=== PATIENT | male | born 1945 | race Caucasian/White ===

== ENCOUNTER 2018-02-18 10:22 | Outpatient (CLI) | payer MEDICARE, BC, SELFPAY ==
[2018-02-18 11:49] LABS: Cholesterol 218 mg/dL (50-200); HDL Cholesterol 84 mg/dL (40-60); LDL CHOLESTEROL 123 mg/dL (<100); Triglyceride 44 mg/dL (30-150)
[2018-02-19 09:40] LABS: PSA, Screening 2.3 ng/ml (0-6.5)
== END 2018-02-18 10:42 ==
LOC: LBO 10:24 → LOS 11:22
PROVIDERS: PCP Family Medicine; Visit Provider Family Medicine
DX: E78.5 Hyperlipidemia, unspecified (principal); Z12.5 Encounter for screening for malignant neoplasm of prostate
CPT/HCPCS: 36415; 80061; 83721; 84153

== ENCOUNTER 2019-02-24 00:47 | Outpatient (CLI) | payer MEDICARE, BC, SELFPAY ==
[2019-02-24 11:16] LABS: CREATININE 0.89 mg/dL (0.70-1.30); Calculated LDL 69 mg/dL; Cholesterol 165 mg/dL (50-200); HDL Cholesterol 88 mg/dL (40-60); Potassium 4.7 mmol/L (3.5-5.1); Triglyceride 44 mg/dL (30-150)
[2019-02-25 09:34] LABS: PSA, Screening 2.5 ng/ml (0-6.5)
== END 2019-02-24 01:07 ==
PROVIDERS: PCP Family Medicine; Visit Provider Family Medicine
DX: E78.5 Hyperlipidemia, unspecified (principal); Z12.5 Encounter for screening for malignant neoplasm of prostate; I10 Essential (primary) hypertension
CPT/HCPCS: 36415; 80061; 84153; 82565; 84132

== ENCOUNTER → 2019-12-22 13:45 | Outpatient (BNVA) | payer MEDICARE, BC, SELFPAY | PROVIDERS: PCP Family Medicine; Referring Provider Family Medicine; Visit Provider Internal Medicine Cardiovascular Disease | DX: I65.29 Occlusion and stenosis of unspecified carotid artery (principal); Z95.4 Presence of other heart-valve replacement; I10 Essential (primary) hypertension | CPT/HCPCS: 99203; 99214 ==

== ENCOUNTER 2020-02-17 05:17 | Outpatient (CLI) | payer MEDICARE, BC, SELFPAY ==
[2020-02-17 12:53] LABS: Calculated LDL 78 mg/dL (<100); Cholesterol 170 mg/dL (<200); HDL Cholesterol 83 mg/dL (40-60); Potassium 5.3 mmol/L (3.5-5.1); Triglyceride 45 mg/dL (<150)
[2020-02-17 18:26] LABS: PSA, Screening 2.4 ng/mL (0.0-6.5)
== END 2020-02-17 05:37 ==
PROVIDERS: PCP Family Medicine; Visit Provider Family Medicine
DX: E78.5 Hyperlipidemia, unspecified (principal); I10 Essential (primary) hypertension; Z12.5 Encounter for screening for malignant neoplasm of prostate
CPT/HCPCS: 36415; 80061; 84153; 82565; 84132

== ENCOUNTER 2020-02-19 11:17 | Outpatient (CLI) | payer MEDICARE, BC, SELFPAY ==
--- NOTE | 2020-02-19 14:44 | DI.US_ITS ---
APPROVED REPORT EXAM: Comprehensive 2D, Doppler, and color-flow Echocardiogram Patient Location: Out-Patient Associate: Aileen Cisneros RDCS (AE) Indications: Mitral Valve Repair Other Information Study Quality: Adequate Conclusion Left Ventricle : The left ventricle is normal size. The left ventricular systolic function is normal. The left ventricular ejection fraction is within the normal range. There is normal left ventricular wall thickness. There is normal LV segmental wall motion. The left ventricular diastolic function is normal. LVEF is 58%. Right Ventricle : The right ventricle is normal size. The right ventricular systolic function is norm al. The RVSP is 19.1mmHg. Atria : The left atrium size is normal. The right atrium size is normal. Mitral Valve : Mitral annuloplasty changes are present. No evidence of mitral valve stenosis. Trace m itral regurgitation. Tricuspid Valve : The tricuspid valve is normal in structure. There is no tricuspid valve stenosis. M ild to moderate tricuspid regurgitation. Please see remainder of study for further details. There is no prior study available for comparison. Wall motion Left Ventricle The left ventricle is normal size. The left ventricular systolic function is normal. The left ventric ular ejection fraction is within the normal range. There is normal left ventricular wall thickness. T here is normal LV segmental wall motion. The left ventricular diastolic function is normal. There is no ventricular septal defect visualized. LVEF is 58%. Right Ventricle The right ventricle is normal size. The right ventricular systolic function is normal. The RVSP is 19 .1mmHg. Atria The left atrium size is normal. The right atrium size is normal. The interatrial septum is intact wit h no evidence for an atrial septal defect. Aortic Valve The aortic valve is normal in structure. Aortic valve is trileaflet. There is no aortic valvular sten osis. Trace aortic regurgitation. Mitral Valve Mitral annuloplasty changes are present. No evidence of mitral valve stenosis. Trace mitral regurgita tion. Tricuspid Valve The tricuspid valve is normal in structure. There is no tricuspid valve stenosis. Mild to moderate tr icuspid regurgitation. Pulmonic Valve The pulmonary valve is normal in structure. There is no pulmonic valvular stenosis. There is no pulmo shahbaz valvular regurgitation. Great Vessels The aortic root is normal in size. Ascending aorta is not well visualized. Aortic arch is normal in c aliber. IVC is normal in size and collapses >50% with inspiration. Pericardium There is no pericardial effusion. 2D Dimensions IVSD d PLAX 0.98 cm M: 0.6-1.2 LV Vol A2C d MOD 83.0 mL LVPW d PLAX 0.90 cm M: 0.6 - 1.2 LV Vol A4C d MOD 101.9 mL LVID d PLAX 4.90 cm M: 4.2 - 5.8 LA vol/ BSA A2C s A-L 26.5 mL/m2 LVDs 3.25 cm M: 2.5 - 4.0 LA vol/ BSA A4C s A-L 30.0 mL/m2 Ao Root d 3.28 cm M: 3.1 - 3.7 LA Vol/ BSA Biplane s A-L 29.6 mL/m2 RA Area A4C 15.62 cm2 LA Area A4C s MOD 18.63 cm2 RA Vol/ BSA A4C s A-L 23.5 mL/m2 LA Area A2C s MOD 16.69 cm2 LV EF Teichholz 61.1 % LV EF A4C MOD 58.9 % LVEF (Schaeffer's) 57.86 % M: 52 - 72 LV EF A2C MOD 58.3 % LV Volume 73.83 mL M: 62 - 150 LV EF Biplane MOD 57.9 % LV Volume Index 40.56 mL/m2 M: 34 - 74 SV 55.23 mL LV Vol Biplane MOD 95.5 mL SV Index 30.21 mL/m2 FS 32.80 % M-Mode TAPSE 1.43 cm (M/F) >1.7 LV Diastology MV E' medial 0.087 (>0.07 m/s) E/A Ratio 1.0 LV E/e MED 9.65 (<14) MV E Vmax 0.84 (0.4-1.3 m/s) MV E' lateral 0.133 (>0.1 m/s) MV A Vmax 0.80 (0.4-1.3 m/s) LV E/e LAT 6.30 (<14) MV E/A Ratio 1.03 MV E/E' medial 9.68 MV E/E' lateral 6.31 Aortic Valve LVOT Area 3.97 cm2 AoV Area Vmax 3.01 cm2 LVOT Vmax 0.82 m/s AoV Area/ BSA (Vmax) 1.64 cm2/m2 LVOT Mean Kennedy. 0.58 m/s JASPAL Mean Kennedy. 2.79 cm2 LVOT Peak Grad 2.7 mmHg JASPAL Mean Kennedy. Index 1.53 cm2/m2 LVOT Mean Grad 1.5 mmHg LVOT VTI 0.162 m LVOT Diam s 2.20 cm AoV Vmax 1.09 m/s Velocity Ratio 0.75 AoV Mean Kennedy. 0.83 m/s AoV Peak Grad 4.7 mmHg LVOT SV 64.24 mL AoV Mean Grad 3.0 mmHg AoV VTI 0.227 m AoV Area VTI 2.84 cm2 AoV Area/ BSA (VTI) 1.55 cm/m2 Mitral Valve MV DT 366 (160-240 msec) MV PHT 106 msec MV Area PHT 2.07 cm2 Pulmonary Valve PV Vmax 1.14 (0.5-1.5 m/s) RVOT Peak Gr. 1.76 mmHg PV Peak Grad 5.2 mmHg RVOT Mean Gr. 1.15 mmHg PV Mean Grad 2.6 mmHg RVOT VTI 0.135 m PV VTI 0.165 m RVOT Vmax 0.66 m/s Tricuspid Valve TR Peak Grad 16.0 mmHg TR Vmax 2.00 m/s RA Pressure 3.00 mmHg RVSP (TR) 19.1 mmHg
== END 2020-02-19 11:37 ==
PROVIDERS: PCP Family Medicine; Visit Provider Internal Medicine Cardiovascular Disease
DX: Z98.890 Other specified postprocedural states (principal); Z95.4 Presence of other heart-valve replacement; I07.1 Rheumatic tricuspid insufficiency
CPT/HCPCS: 93306

== ENCOUNTER 2020-03-02 04:26 | Outpatient (CLI) | payer MEDICARE, BC, SELFPAY ==
[2020-03-02 12:43] LABS: Potassium 4.8 mmol/L (3.5-5.1)
== END 2020-03-02 04:46 ==
PROVIDERS: PCP Family Medicine; Visit Provider Family Medicine
DX: I10 Essential (primary) hypertension (principal)
CPT/HCPCS: 36415; 84132

== ENCOUNTER → 2021-01-02 13:20 | Outpatient (BNVA) | payer MEDICARE, BC, SELFPAY | PROVIDERS: PCP Family Medicine; Referring Provider Family Medicine; Visit Provider Internal Medicine Cardiovascular Disease | DX: I10 Essential (primary) hypertension (principal); Z98.890 Other specified postprocedural states | CPT/HCPCS: 99213 ==

== ENCOUNTER 2021-04-05 01:36 | Outpatient (CLI) | payer MEDICARE, BC, SELFPAY ==
[2021-04-05 11:26] LABS: CREATININE 0.8 mg/dL (0.70-1.30); Calculated LDL 89 mg/dL (<100); Cholesterol 179 mg/dL (<200); HDL Cholesterol 82 mg/dL (40-60); Potassium 4.8 mmol/L (3.5-5.1); Triglyceride 43 mg/dL (<150)
== END 2021-04-05 01:37 | disposition home or self-care (01) ==
LOC: LOS 01:37
PROVIDERS: PCP Family Medicine; Visit Provider Family Medicine
DX: I10 Essential (primary) hypertension (principal); E78.5 Hyperlipidemia, unspecified
CPT/HCPCS: 36415; 80061; 82565; 84132

== ENCOUNTER 2021-04-18 13:52 | Outpatient (CLI) | payer MEDICARE, BC, SELFPAY ==
[2021-04-18 13:52] LABS: Abs Immature Grans 0.01 10^3/uL (0.0-0.06); Absolute Basophil Count 0.06 10^3/uL (0.0-0.2); Absolute Eosinophil Count 0.14 10^3/uL (0.0-0.7); Absolute Lymphocyte Count 1.11 10^3/uL (1.2-3.4); Absolute Monocyte Count 0.46 10^3/uL (0.1-0.8); Absolute Neutrophil Count 3.63 10^3/uL (1.2-6.7); Basophils % 1.1; Eosinophils % 2.6; HCT 40.9 % (40.0-50.0); HGB 13.5 g/dL (13.5-17.5); Immature Grans % 0.2; Lymphocytes % 20.5; MCH 31.9 pg (27.0-33.0); MCV 96.7 fL (80-95); MPV 9.3 fL (8.0-11.0); Monocytes % 8.5; Neutrophils % 67.1; Nucleated RBC 0 %; Platelet Count 216 10^3/uL (130-400); RBC 4.23 10^6/uL (4.36-5.78); RDW 13.1 % (11.8-14.1); RDW-SD 46.5 fL; WBC 5.41 10^3/uL (4.4-10.8)
[2021-04-18 13:54] LABS: ESR 2 mm/hr (0-20)
[2021-04-18 15:26] LABS: ALT 33 U/L (16-63); AST 39 U/L (15-37); Albumin 3.8 g/dL (3.4-5.0); Alkaline Phosphatase 70 U/L (46-116); Anion Gap 5.1 mmol/L (3-11); BUN 16 mg/dL (7-18); Bilirubin, Total 0.3 mg/dL (0.2-1.0); CO2 31.9 mmol/L (21.0-32.0); CREATININE 0.9 mg/dL (0.70-1.30); Calcium 9.3 mg/dL (8.5-10.1); Chloride 102 mmol/L (98-107); Glucose 79 mg/dL (74-106); Sodium 139 mmol/L (136-145)
[2021-04-18 15:27] LABS: C-Reactive Protein < 0.05 mg/dL (0.0-0.3)
[2021-04-19 10:42] LABS: Lyme Ab w Rflx to Lyme Confirm Negative (Negative)
== END 2021-04-18 13:53 | disposition home or self-care (01) ==
LOC: LBO 13:54
PROVIDERS: PCP Family Medicine; Visit Provider Family Medicine
DX: I10 Essential (primary) hypertension (principal); R51.9 Headache, unspecified
CPT/HCPCS: 36415; 80053; 85652; 85025; 86140; 86618

== ENCOUNTER 2021-04-21 02:33 | Outpatient (CLI) | payer MEDICARE, BC, SELFPAY ==
--- NOTE | 2021-04-21 08:30 | DI.MRI_ITS ---
Exam(s) MR BRAIN WO/W EXAM: MR BRAIN WO/W CLINICAL HISTORY: NEW ONSET MODERATE TO SEVERE LT PERIORBITAL PAIN,R51.9. TECHNIQUE: Multiplanar multisequence MRI of the brain was performed. CONTRAST MATERIAL: IV Contrast: 14 ML of Dotarem contrast administered. COMPARISON: No exams were available for comparison FINDINGS: VENTRICLES AND EXTRA AXIAL SPACES: Normal in size and morphology for the patient's age. HEMORRHAGE: None. CEREBRAL PARENCHYMA: No focus of restricted diffusion to suggest acute infarct. No space-occupying le ronnie identified. Mild atrophy and white matter changes of small vessel disease. MIDLINE SHIFT: None. BRAINSTEM/CEREBELLUM: Normal. CALVARIUM: Normal. ENHANCEMENT: No suspicious enhancement identified. VISUALIZED PARANASAL SINUSES/MASTOIDS: Mild mucous retention floor right maxillary sinus. Frontal si nuses clear. OTHER FINDINGS: Orbits and pituitary are unremarkable. IMPRESSION: Unremarkable MRI of the brain. DATA REPOSITORY:
[2021-04-21] MEDS: Normal Saline Flush 10 ML SYR IVP (13:27)
[2021-04-21] MEDS: Gadoterate meglumine 20 ML VIAL 14 ML IVP (13:28)
== END 2021-04-21 02:53 ==
PROVIDERS: PCP Family Medicine; Visit Provider Family Medicine
DX: R51.9 Headache, unspecified (principal); R90.82 White matter disease, unspecified
CPT/HCPCS: 70553

== ENCOUNTER 2021-04-28 14:22 | Outpatient (CLI) | payer MEDICARE, BC, SELFPAY ==
--- NOTE | 2021-04-28 10:55 | DI.RAD_ITS ---
Exam(s) XR KNEE LT 3V AP,LAT,[place] EXAM: XR KNEE LT 3V AP,LAT,[place] CLINICAL HISTORY: left knee pain; s/p L TKA about 15 yrs ago M25.562 PAIN LT KNEE TECHNIQUE: COMPARISON: No exams were available for comparison FINDINGS: Three views were obtained. There is an ACL reconstruction. There is narrowing of the cartilaginous joint spaces of medial and lateral tibiofemoral joints. Mild marginal osteophytes formation noted at multiple sites. No other significant bony or soft tissue abnormality seen. IMPRESSION: RADIATION DOSE DELIVERED: Total DLP
== END 2021-04-28 14:42 ==
PROVIDERS: PCP Family Medicine; Visit Provider Family Medicine
DX: M25.562 Pain in left knee (principal); Z98.890 Other specified postprocedural states
CPT/HCPCS: 73562

== ENCOUNTER → 2021-05-02 13:41 | Outpatient (BNVA) | payer MEDICARE, BC, SELFPAY | PROVIDERS: PCP Family Medicine; Referring Provider Family Medicine; Visit Provider Psychiatry & Neurology Neurology | DX: H57.12 Ocular pain, left eye (principal); I10 Essential (primary) hypertension | CPT/HCPCS: 99215 ==

== ENCOUNTER → 2021-12-19 12:47 | Outpatient (BNVA) | payer MEDICARE, SELFPAY | PROVIDERS: PCP Family Medicine; Referring Provider Family Medicine; Visit Provider Internal Medicine Cardiovascular Disease | DX: R42 Dizziness and giddiness (principal); I10 Essential (primary) hypertension; Z98.890 Other specified postprocedural states | CPT/HCPCS: 99214; 99213 ==

== ENCOUNTER 2022-02-27 09:16 | Outpatient (CLI) | payer MEDICARE, SELFPAY ==
[2022-02-27 12:50] LABS: AST 41 U/L (15-37); CREATININE 0.9 mg/dL (0.70-1.30); Estimated GFR 88.51 (mL/min/1.73m2); Potassium 4.9 mmol/L (3.5-5.1)
== END 2022-02-27 09:17 | disposition home or self-care (01) ==
LOC: LOS 09:17
PROVIDERS: PCP Family Medicine; Referring Provider Family Medicine; Visit Provider Family Medicine
DX: I10 Essential (primary) hypertension (principal); K76.0 Fatty (change of) liver, not elsewhere classified
CPT/HCPCS: 36415; 82565; 84132; 84450

== ENCOUNTER 2022-11-14 02:31 | Outpatient (CLI) | payer MEDICARE, SELFPAY ==
--- NOTE | 2022-11-14 08:30 | DI.RAD_ITS ---
Exam(s) XR FOOT RT COMPLETE EXAM: XR FOOT RT COMPLETE CLINICAL HISTORY: right foot pain,injury,s99.321a. TECHNIQUE: 2D digital imaging was performed. Three views. COMPARISON: No exams were available for comparison FINDINGS: BONES: There is a nondisplaced fracture of the distal 3rd of the 2nd metatarsal. There is slight def ormity at the neck of the 4th metatarsal on the oblique view which could be an acute versus old fract ure. No bony destructive lesion is seen. JOINTS: No dislocation present. Degenerative changes the 1st MTP joint. SOFT TISSUE: Mild dorsal swelling. IMPRESSION: Acute nondisplaced fracture of the 2nd metatarsal. Question of additional acute versus old fracture of the 4th metatarsal tarsal neck. DATA REPOSITORY: RADIATION DOSE DELIVERED:
== END 2022-11-14 02:51 ==
LOC: DI 02:31
PROVIDERS: PCP Family Medicine; Visit Provider Nurse Practitioner Family
DX: S92.324A Nondisplaced fracture of second metatarsal bone, right foot, initial encounter for closed fracture (principal); X58.XXXA Exposure to other specified factors, initial encounter
CPT/HCPCS: 73630

== ENCOUNTER 2023-02-07 08:55 | Outpatient (CLI) | payer MEDICARE, SELFPAY ==
--- NOTE | 2023-02-07 08:55 | RT.EKG_ITS ---
APPROVED REPORT Exam: Resting ECG Reason for Exam: dizziness Patient Location: O HR:72 bpm ECG Measurements Heart Rate 72 AXIS WI 159 P -3 QRSd 99 QRS -23 QT 399 T 29 QTc 437 Conclusion Sinus rhythm...normal P axis, V-rate 50- 99 Atrial premature complex...SV complex w/ short R-R interval
== END 2023-02-07 08:56 | disposition home or self-care (01) ==
LOC: DI.CARD 08:56
PROVIDERS: PCP Family Medicine; Visit Provider Internal Medicine Cardiovascular Disease
DX: I10 Essential (primary) hypertension (principal); I42.8 Other cardiomyopathies; R42 Dizziness and giddiness
CPT/HCPCS: 93010

== ENCOUNTER → 2023-02-07 12:49 | Outpatient (BNVA) | payer MEDICARE, SELFPAY | PROVIDERS: PCP Family Medicine; Visit Provider Internal Medicine Cardiovascular Disease | DX: I34.0 Nonrheumatic mitral (valve) insufficiency (principal); Z98.890 Other specified postprocedural states; I10 Essential (primary) hypertension | CPT/HCPCS: 93005; 99213 ==

== ENCOUNTER 2023-03-05 09:06 | Outpatient (CLI) | payer MEDICARE, SELFPAY ==
[2023-03-05 13:07] LABS: Calculated LDL 87 mg/dL (<100); Cholesterol 183 mg/dL (<200); Estimated GFR 77.52 (mL/min/1.73m2); HDL Cholesterol 84 mg/dL (40-60); Potassium 4.6 mmol/L (3.5-5.1); Triglyceride 60 mg/dL (<150)
== END 2023-03-05 09:07 | disposition home or self-care (01) ==
LOC: LOS 09:06
PROVIDERS: PCP Family Medicine; Referring Provider Family Medicine; Visit Provider Family Medicine
DX: I10 Essential (primary) hypertension (principal); E78.5 Hyperlipidemia, unspecified
CPT/HCPCS: 36415; 80061; 82565; 84132

== ENCOUNTER → 2023-11-28 20:15 | Outpatient (CLI) | payer MEDICARE, SELFPAY ==
--- NOTE | 2023-11-28 | DI.RAD_ITS ---
Exam(s) XR THORACIC SPINE COMPLETE EXAM: XR THORACIC SPINE COMPLETE CLINICAL HISTORY: PAIN IN THORACIC SPINE, M54.6. TECHNIQUE: 2D digital imaging was performed of the thoracic spine. Three views were obtained. AP, swimmer's and lateral views were obtained. COMPARISON: No exams were available for comparison FINDINGS: BONES: There is no fracture or destructive lesion. There are degenerative changes seen in the thoraci c spine characterized by disc space narrowing and endplate osteophytes. DISKS:Alignment is within normal limits. SOFT TISSUE: No focal infiltrates are seen in the lungs. IMPRESSION: [id number] degenerative changes seen in the thoracic spine. No acute fracture or subluxation. DATA REPOSITORY: RADIATION DOSE DELIVERED:
== END ==
PROVIDERS: PCP Family Medicine; Visit Provider Physician Assistant Medical
DX: M54.6 Pain in thoracic spine (principal)
CPT/HCPCS: 72072

== ENCOUNTER → 2023-12-06 13:16 | Outpatient (CLI) | payer MEDICARE, SELFPAY ==
--- NOTE | 2023-12-06 12:30 | DI.US_ITS ---
Exam(s) US ABDOMEN LIMITED EXAM: US ABDOMEN LIMITED CLINICAL HISTORY: evaluate pathology - liver and gallbladder, R10.9 abd pain TECHNIQUE: Ultrasound abdomen performed using standard protocol. COMPARISON: US ABDOMEN ULTRASOUND (P) from 03/11/2014 FINDINGS: LIVER: Normal size. Normalechogenicity. No focal liver lesions are seen.. GALLBLADDER: Tiny echogenic foci along the wall of the gallbladder consistent with cholesterolosis. No evidence of cholelithiasis. No evidence of wall thickening. No pericholecystic fluid identified. LOBO'S SIGN: Negative. BILIARY SYSTEM: No intrahepatic or extrahepatic biliary ductal dilation. RIGHT KIDNEY: Normal size. No evidence of renal calculi. No evidence of hydronephrosis. No suspicious renal mass. A few small cysts noted PANCREAS: Normal where visualized. ABDOMINAL AORTA AND IVC: Visualized portions normal caliber. ASCITES: None seen. IMPRESSION: Mild gallbladder wall cholesterolosis. No stones or wall thickening. DATA REPOSITORY:
== END ==
PROVIDERS: PCP Family Medicine; Visit Provider Nurse Practitioner Family
DX: R10.9 Unspecified abdominal pain (principal); K82.4 Cholesterolosis of gallbladder
CPT/HCPCS: 76705

== ENCOUNTER 2023-12-06 16:47 | Outpatient (REF) | payer MEDICARE, SELFPAY ==
[2023-12-06 21:13] LABS: Abs Immature Grans 0.01 10^3/uL (0.0-0.06); Absolute Basophil Count 0.04 10^3/uL (0.0-0.2); Absolute Eosinophil Count 0.12 10^3/uL (0.0-0.7); Absolute Lymphocyte Count 0.86 10^3/uL (1.2-3.4); Absolute Monocyte Count 0.54 10^3/uL (0.1-0.8); Absolute Neutrophil Count 3.59 10^3/uL (1.2-6.7); Basophils % 0.8 %; Eosinophils % 2.3 %; HCT 40.8 % (40.0-50.0); HGB 13.9 g/dL (13.5-17.5); Immature Grans % 0.2 %; Lymphocytes % 16.7 %; MCH 32.7 pg (27.0-33.0); MCHC 34.1 % (32.0-36.0); MCV 96 fL (80-95); MPV 10.5 fL (8.0-11.0); Monocytes % 10.5 %; Neutrophils % 69.5 %; Platelet Count 210 10^3/uL (130-400); RBC 4.25 10^6/uL (4.36-5.78); RDW 13.2 % (11.8-14.1); RDW-SD 46.6 fL; WBC 5.16 10^3/uL (4.4-10.8)
== END 2023-12-06 16:48 | disposition home or self-care (01) ==
LOC: LBN 16:47
PROVIDERS: PCP Family Medicine; Visit Provider Nurse Practitioner Family
DX: R10.11 Right upper quadrant pain (principal)
CPT/HCPCS: 80053; 83690; 85025

== ENCOUNTER 2023-12-09 18:51 | Outpatient (CLI) | payer MEDICARE, SELFPAY ==
[2023-12-09 10:32] LABS: ALT 36 U/L (16-63); AST 36 U/L (15-37); Albumin 3.6 g/dL (3.4-5.0); Alkaline Phosphatase 67 U/L (46-116); Anion Gap 8.4 mmol/L (3-11); BUN 15 mg/dL (7-18); CO2 27.6 mmol/L (21.0-32.0); CREATININE 0.9 mg/dL (0.70-1.30); Calcium 9.3 mg/dL (8.5-10.1); Chloride 98 mmol/L (98-107); Estimated GFR 87.42 (mL/min/1.73m2); Glucose 106 mg/dL (74-106); Lipase 100 U/L (16-77); Potassium 5.1 mmol/L (3.5-5.1); Sodium 134 mmol/L (136-145)
== END 2023-12-09 18:52 | disposition home or self-care (01) ==
LOC: LBO 18:51
PROVIDERS: PCP Family Medicine; Visit Provider Nurse Practitioner Family
DX: R10.9 Unspecified abdominal pain (principal)
CPT/HCPCS: 36415; 80053; 83690

== ENCOUNTER 2024-01-13 16:16 | Outpatient (REF) | payer MEDICARE, SELFPAY | END 2024-01-13 16:17 | disposition home or self-care (01) | LOC: NCHCN 16:16 | PROVIDERS: PCP Family Medicine; Visit Provider Nurse Practitioner Family | DX: R19.7 Diarrhea, unspecified (principal) | CPT/HCPCS: 87329; 87177 ==

== ENCOUNTER → 2024-02-13 12:56 | Outpatient (BNVA) | payer MEDICARE, SELFPAY | PROVIDERS: PCP Family Medicine; Visit Provider Internal Medicine Cardiovascular Disease | DX: I42.8 Other cardiomyopathies (principal); I10 Essential (primary) hypertension; Z98.890 Other specified postprocedural states | CPT/HCPCS: 99213 ==

== ENCOUNTER 2024-12-22 15:55 | Outpatient (REF) | payer MEDICARE, SELFPAY ==
[2024-12-22 21:58] LABS: HCT 38.2 % (40.0-50.0); HGB 13.1 g/dL (13.5-17.5); MCH 32.2 pg (27.0-33.0); MCHC 34.3 % (32.0-36.0); MCV 94 fL (80-95); MPV 10.8 fL (8.0-11.0); Platelet Count 206 10^3/uL (130-400); RBC 4.07 10^6/uL (4.36-5.78); RDW 13.1 % (11.8-14.1); RDW-SD 45.4 fL; WBC 4.97 10^3/uL (4.4-10.8)
[2024-12-22 22:14] LABS: ALT 37 U/L (16-63); AST 38 U/L (15-37); Albumin 3.6 g/dL (3.4-5.0); Alkaline Phosphatase 74 U/L (46-116); Anion Gap 9.3 mmol/L (3-11); BUN 26 mg/dL (7-18); Bilirubin, Total 0.4 mg/dL (0.2-1.0); CO2 25.7 mmol/L (21.0-32.0); Calcium 9.0 mg/dL (8.5-10.1); Chloride 102 mmol/L (98-107); Estimated GFR 86.88 (mL/min/1.73m2); Glucose 129 mg/dL (74-106); Lipase 32 U/L (<78); Potassium 4.3 mmol/L (3.5-5.1); Sodium 137 mmol/L (136-145); Total Protein 6.4 g/dL (6.4-8.2)
== END 2024-12-22 15:56 | disposition home or self-care (01) ==
LOC: NCHCN 15:55
PROVIDERS: PCP Family Medicine; Visit Provider Physician Assistant
DX: R10.9 Unspecified abdominal pain (principal)
CPT/HCPCS: 80053; 83690; 85027

== ENCOUNTER 2024-12-25 09:00 | Outpatient (CLI) | payer MEDICARE, SELFPAY ==
--- NOTE | 2024-12-25 08:30 | DI.RAD_ITS ---
Exam(s) XR LUMBAR SPINE COMPLETE EXAM: XR LUMBAR SPINE COMPLETE CLINICAL HISTORY: back pain M54.9 Dorsalgia. TECHNIQUE: 2D digital imaging was performed. COMPARISON: No exams were available for comparison FINDINGS: Five views No evidence of compression fracture. There is some disc space narrowing is most prominent at L5-S1 level where there is also vacuum phenomenon within the disc space. There is also significant disc space narrowing at L2-3 level. There is mild degenerative anterolisthesis of L4 upon L5 related to facet arthropathy. There are no pars defects. There is significant facet arthropathy at the lower 3 levels. There is a degenerative scoliosis having epicenter at L2-3 level where there is asymmetric disc space narrowing on the left side and lateral left osteophytes. IMPRESSION: Multilevel degenerative disc disease and facet arthropathy. Mild scoliosis. No osseous lesions. DATA REPOSITORY: RADIATION DOSE DELIVERED:
--- NOTE | 2024-12-25 08:30 | DI.RAD_ITS ---
Exam(s) XR THORACIC SPINE COMPLETE EXAM: XR THORACIC SPINE COMPLETE CLINICAL HISTORY: rt flank pain R10/.9 uspecified abnl pain. TECHNIQUE: 2D digital imaging was performed. COMPARISON: CR XR THORACIC SPINE COMPLETE from 11/28/2023 FINDINGS: 3 views No evidence of compression fracture or listhesis. There is no abnormal widening of the paraspinal lines of the thoracic spinal column and there are no osseous lesions evident. 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 Also sternotomy wires. IMPRESSION: No acute osseous findings in the thoracic spinal column. DATA REPOSITORY: RADIATION DOSE DELIVERED:
== END 2024-12-25 09:20 ==
PROVIDERS: PCP Family Medicine; Visit Provider Family Medicine
DX: R10.9 Unspecified abdominal pain (principal); M46.96 Unspecified inflammatory spondylopathy, lumbar region
CPT/HCPCS: 72072; 72110

== ENCOUNTER 2025-02-03 01:59 | Outpatient (CLI) | payer MEDICARE, SELFPAY ==
--- NOTE | 2025-02-03 07:30 | DI.US_ITS ---
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 Ejection fraction is 55%. Wall motion is normal Normal right ventricular size and function Both atria are normal in size Trileaflet aortic valve with trace regurgitation Prior mitral annuloplasty. Residual trace to mild mitral regurgitation Mild tricuspid regurgitation with estimated right ventricular systolic pressure of 24 mmHg Wall motion Left Ventricle The left ventricle is normal size. The left ventricular systolic function is normal. The left ventricular ejection fraction is within the normal range. There is normal left ventricular wall thickness. There is normal LV segmental wall motion. There is no ventricular septal defect visualized. LVEF is 55%. Right Ventricle The right ventricle is normal size. The right ventricular systolic function is normal. Atria The left atrium size is normal. The right atrium size is normal. The interatrial septum is intact with no evidence for an atrial septal defect. Aortic Valve The aortic valve is normal in structure. Aortic valve is trileaflet. There is no aortic valvular stenosis. Trace aortic regurgitation. Mitral Valve Mitral annuloplasty changes are present. No evidence of mitral valve stenosis. Trace to mild mitral regurgitation. Tricuspid Valve The tricuspid valve is normal in structure. There is no tricuspid valve stenosis. Mild tricuspid regurgitation. The RVSP is 23.6 mmHg. Pulmonic Valve The pulmonary valve is normal in structure. There is no pulmonic valvular stenosis. There is no pulmonic valvular regurgitation. Great Vessels The aortic root is normal in size. The ascending aorta is normal in size. Aortic arch is not well visualized. IVC is normal in size and collapses >50% with inspiration. Pericardium There is no pericardial effusion. 2D Dimensions IVSD d PLAX 0.93 cm M: 0.6-1.2 Ao Root d 3.56 cm M: 3.1 - 3.7 LVPW d PLAX 0.91 cm M: 0.6 - 1.2 Ao Asc Diam d 3.42 cm M: 2.6 - 3.4 LVID d PLAX 4.90 cm M: 4.2 - 5.8 LVDs 3.50 cm M: 2.5 - 4.0 LV EF Teichholz 54.4 % FS 28.21 % LV EDV (Teich) 111.2 mL LV ESV (Teich) 50.7 mL M-Mode TAPSE 1.60 cm (M/F) >1.7 Auto EF LV EDV A4C 156.5 mL LV EDV A2C 130.1 mL LV EDV BP 142.3 mL LV ESV A4C 69.3 mL LV ESV A2C 59.2 mL LV ESV BP 64.9 mL LVEF(%) A4C 55.7 % LVEF(%) A2C 54.5 % LVEF(%) BP 54.4 % LV SV A4C 87.2 ml LV SV A2C 70.9 ml LV SV BP 77.4 ml LV CO A4C 6.1 L/min LV CO A2C 4.7 L/min LV CO BP 5.4 L/min HR A4C 69.77 BPM HR A2C 66.92 BPM LV EDV Index (BP) LA Volume LA Length A4C 5.2 cm LA Length A2C 4.7 cm LA Area A4C s 20.79 cm2 LA Area A2C s 19.63 cm2 LA Vol A4C A-L 70.89 mL LA Vol A2C A-L 70.35 mL LA Vol Biplane A-L 74.5 mL LA Vol/BSA A4C A-L LA Vol/BSA A2C A-L LA Vol/BSA BP A-L 40.0 mL/m2 LA Vol A4C MOD 66.4 mL LA Vol A2C MOD 65.9 mL LA Vol BP MOD 69.6 mL RA Volume RA Area A4C 17.4 cm2 RA ESV A4C (A-L) 55.0mL RA Vol/BSA A4C A-L RA Length A4C 4.7 cm RA ESV A4C (MOD) 52.6mL LV Diastology MV E' medial 0.054 (>0.07 m/s) MV E Vmax 0.82 (0.4-1.3 m/s) MV E/E' MED 15.11 (<14) MV A Vmax 1.40 (0.4-1.3 m/s) MV E' lateral 0.048 (>0.1 m/s) E/A Ratio 0.6 MV E/E' LAT 17.07 (<14) MV E' Average 0.051 m/s MV E/E'(average) 16.03 Aortic Valve AoV Vmax 1.11 m/s LVOT Vmax 0.83 m/s AoV Peak Grad 4.9 mmHg LVOT Peak Grad 2.8 mmHg AoV Area (Vmax) 2.56 cm2 LVOT VTI 0.204 m AoV VTI 0.265 m LVOT Mean Grad 1.7 mmHg AoV Mean Kennedy. 0.79 m/s LVOT SV 69.70 mL AoV Mean Grad 2.9 mmHg LVOT Diam s 2.05 cm AoV Area (VTI) 2.63 cm2 AV Regurg Peak Gr. 4.92 mmHg Velocity Ratio 0.75 Mitral Valve MV DT 344 (160-240 msec) MV Vmax TIPS 1.43 m/s MV Mean Grad 3.2 (<2mmHg) MV VTI 0.381 m Pulmonary Valve PV Vmax 0.89 (0.5-1.5 m/s) RVOT Vmax 0.48 m/s PV Peak Grad 3.1 mmHg RVOT Peak Gr. 0.9 mmHg PV Mean Kennedy 0.63 m/s RVOT VTI 0.100 m PV Mean Grad 1.7 mmHg RVOT Mean Gr. 0.6 mmHg Tricuspid Valve RA Pressure 3.00 mmHg TR Vmax 2.27 m/s TV S' 0.10 m/s TR Peak Grad 20.6 mmHg RVSP (TR) 23.6 mmHg
== END 2025-02-03 02:19 ==
PROVIDERS: PCP Family Medicine; Visit Provider Internal Medicine Cardiovascular Disease
DX: Z98.890 Other specified postprocedural states (principal); I36.0 Nonrheumatic tricuspid (valve) stenosis
CPT/HCPCS: 93306

== ENCOUNTER 2025-02-12 13:25 | Outpatient (CLI) | payer MEDICARE, SELFPAY ==
--- NOTE | 2025-02-12 13:15 | RT.EKG_ITS ---
APPROVED REPORT Exam: Resting ECG Reason for Exam: follow up needed Patient Location: O HR:75 bpm ECG Measurements Heart Rate 75 AXIS WV 153 P 11 QRSd 98 QRS -32 QT 384 T 14 QTc 429 Conclusion Sinus rhythm...normal P axis, V-rate 50- 99 Ventricular premature complex...V complex w/ short R-R interval Otherwise normal
== END 2025-02-12 13:26 | disposition home or self-care (01) ==
LOC: DI.CARD 13:26
PROVIDERS: PCP Family Medicine; Visit Provider Internal Medicine Cardiovascular Disease
DX: I65.29 Occlusion and stenosis of unspecified carotid artery (principal); I10 Essential (primary) hypertension; R42 Dizziness and giddiness
CPT/HCPCS: 93010

== ENCOUNTER → 2025-02-12 13:25 | Outpatient (BNVA) | payer MEDICARE, SELFPAY | PROVIDERS: PCP Family Medicine; Referring Provider Family Medicine; Visit Provider Internal Medicine Cardiovascular Disease | DX: Z98.890 Other specified postprocedural states (principal); I65.29 Occlusion and stenosis of unspecified carotid artery; I10 Essential (primary) hypertension; R42 Dizziness and giddiness | CPT/HCPCS: 99213; 93005 ==